=== PATIENT | male | born 1995 | race Caucasian/White ===

== ENCOUNTER 2016-11-15 22:20 | Emergency (ER) | payer OTHER ==
[~2016-11-15] VITALS: Ht 175.2 cm; Wt 72.6 kg
[~2016-11-15 22:20] MED LIST: KEFLEX500 MG PO; LEVEMIR100 U/ML; MOTRIN800 MG PO; NOVOLOG 70/30 M10 ML IM; NOVOLOG 701 UNIT/0.0; NOVOLOG1 UNIT/0.0 IJ; NOVOLOG10 ML IV; NOVOLOG100 U/ML
[2016-11-15 22:27] VITALS: BP 146/85
== END 2016-11-16 00:50 | disposition home or self-care (01) ==
LOC: ED 22:20
DX: E16.2 Hypoglycemia, unspecified (principal); E10.9 Type 1 diabetes mellitus without complications; F17.200 Nicotine dependence, unspecified, uncomplicated

== ENCOUNTER → 2017-08-02 | Outpatient (CLI) | payer OTHER ==
[2017-08-02 10:57] LABS: BILIRUBIN NEGATIVE (NEGATIVE); BLOOD NEGATIVE (NEGATIVE); CLARITY CLEAR (CLEAR); COLOR YELLOW (YELLOW); GLUCOSE 3+ (NEGATIVE); KETONE NEGATIVE (NEGATIVE); LEUKO ESTERASE NEGATIVE (NEGATIVE); NITRITE NEGATIVE (NEGATIVE); UROBILINOGEN 0.2 E.U./dl (0.2-1.0)
[2017-08-02 11:27] LABS: ALBUMIN 3.8 gm/dl (3.1-4.5); ALKALINE PHOSPHATASE 130 U/L (45-117); BILIRUBIN, DIRECT < 0.1 mg/dL (0.0-0.2); BUN 14 mg/dl (7-24); CHLORIDE 103 mmol/L (98-107); CHOLESTEROL 164 mg/dL (<200); CREATININE 1.04 mg/dL (0.70-1.30); HDL CHOLESTEROL 44 mg/dl (40-60); LDL CHOLESTEROL 84 mg/dL (9-159); POTASSIUM 4.3 mmol/L (3.5-5.1); SGOT/AST 29 IU/L (3-35); SGPT/ALT 24 U/L (12-78); SODIUM 139 mmol/L (136-145); TOTAL PROTEIN 7.6 gm/dL (6.4-8.2); TRIGLYCERIDES 182 mg/dl (<150); VLDL CHOLESTEROL 36 mg/dL (6-40)
[2017-08-02 11:40] LABS: RBC 0-2 rbc/hpf (0-2); WBC 0-2 wbc/hpf (0-5)
== END ==
LOC: LAB 10:21
PROVIDERS: Internal Medicine
DX: E10.65 Type 1 diabetes mellitus with hyperglycemia (principal); E55.9 Vitamin D deficiency, unspecified; E78.5 Hyperlipidemia, unspecified

== ENCOUNTER → 2017-09-01 | Outpatient (CLI) | payer OTHER ==
[~2017-09-01] MED LIST changes: +KEFLEX500 M1 PO
== END | disposition home or self-care (01) ==
LOC: D 13:31
DX: E10.65 Type 1 diabetes mellitus with hyperglycemia (principal)

== ENCOUNTER 2017-09-18 13:15 | Emergency (ER) | payer OTHER ==
[~2017-09-18] VITALS: Ht 177.8 cm; Wt 77.1 kg
[~2017-09-18 13:15] MED LIST changes: -KEFLEX500 M1 PO
[2017-09-18 13:16] VITALS: BP 133/69
[2017-09-18] MEDS ORDERED: KEFLEX500 M1 PO (14:27)
== END 2017-09-18 15:07 | disposition home or self-care (01) ==
LOC: ED 13:15
DX: S80.261A Insect bite (nonvenomous), right knee, initial encounter (principal); Z79.4 Long term (current) use of insulin; W57.XXXA Bitten or stung by nonvenomous insect and other nonvenomous arthropods, initial encounter; Y93.89 Activity, other specified; Y92.89 Other specified places as the place of occurrence of the external cause; Y99.8 Other external cause status

== ENCOUNTER 2020-02-03 14:38 | Emergency (ER) | payer OTHER ==
[~2020-02-03] VITALS: Wt 74.8 kg
[~2020-02-03 14:38] MED LIST changes: +KEFLEX500 M1 PO
[2020-02-03 14:45] VITALS: BP 148/99
[2020-02-03 15:12] LABS: BILIRUBIN Negative (Negative); BLOOD Negative (Negative); CLARITY Clear (Clear); COLOR Yellow (Yellow); GLUCOSE 2+ (Negative); KETONE Negative (Negative); LEUKO ESTERASE Negative (Negative); NITRITE Negative (Negative); PH 7.5 (4.5-8.0); SPECIFIC GRAVITY <= 1.005 (1.001-1.030); UROBILINOGEN 0.2 E.U./dl (0.0-1.0)
[2020-02-03] MEDS ORDERED: NICODERM CQ1 EAC2 T (15:16)
[2020-02-03 15:19] LABS: WBC 0-2 wbc/hpf (0-5)
== END 2020-02-03 15:40 | disposition home or self-care (01) ==
LOC: ED 14:38
PROVIDERS: Emergency Medicine
DX: R30.0 Dysuria (principal); Z79.4 Long term (current) use of insulin; Z79.899 Other long term (current) drug therapy